=== PATIENT | female | born 1970 | race Caucasian/White ===

== ENCOUNTER 2017-09-20 06:27 | Inpatient (IN) ==
[2017-09-20] MEDS ORDERED: ENOXAPARIN 100 MG/ML SYRINGE SUBCUT STA (07:02)
[2017-09-20] MEDS ORDERED: MORPHINE 2 MG/1 ML SYRINGE IV PRN (07:02)
[2017-09-20] MEDS ORDERED: NITROGLYCERIN SL 0.4 MG TABLET SL PRN (07:02)
[2017-09-20] MEDS ORDERED: ASPIRIN 325 MG TABLET PO STA (07:02)
[2017-09-20] MEDS ORDERED: ONDANSETRON 4 MG/2 ML VIAL IV PRN (07:02)
[2017-09-20] MEDS ORDERED: NITROGLYCERIN 2% OINT 1 INCH/GM PACK TOP STA (07:02)
[2017-09-20 07:54] LABS: INR 0.9; PT Patient Result 9.7 SECS; Partial Thromboplastin Time < 21.0 SECS (0-40)
[2017-09-20] MEDS ORDERED: ENOXAPARIN 120 MG/0.8 ML SYRINGE SUBCUT ONE (08:04)
[2017-09-20] MEDS ORDERED: NITROGLYCERIN 2% OINT 1 INCH/GM PACK TOP ONE (08:05)
[2017-09-20] MEDS ORDERED: ASPIRIN 325 MG TABLET ONE (08:05)
[2017-09-20 08:17] LABS: Basophils # 0.1 10*3/uL (0.0-0.2); Basophils % 0.8 % (0.0-0.8); Eosinophils # 0.2 10*3/uL (0.0-0.87); Eosinophils % 2.5 % (0.00-10.9); Hematocrit 39.5 VOL% (35.7-47.0); Immature Granulocytes % 0.3 %; Immature Granulocytes Absolute 0.02 #; Mean Corpuscular HGB Conc 32.9 GM/DL (32-36); Mean Corpuscular Hemoglobin 30 PG (27-34); Mean Corpuscular Volume 90.4 FL (87-102); Mean Platelet Volume 10.7 FL (9.6-12.0); Monocytes # 0.5 10*3/uL (0.11-0.8); Monocytes % 7.4 % (1.7-12.7); Neutrophils # 3.5 10*3/uL (1.4-7.4); Platelet Count 251 T/CUMM (130-400); Red Blood Count 4.37 MC/CUMM (3.8-5.5); Red Cell Distribution Width 14.5 % (9.3-17.3); White Blood Count 6.1 T/CUMM (4-12)
[2017-09-20 08:22] LABS: Alanine Aminotransferase 65 U/L (13-56); Albumin 3.3 G/DL (3.4-5.0); Alkaline Phosphatase 134 U/L (45-117); Aspartate Amino Transferase 67 U/L (0-37); Bilirubin,Total < 0.39 MG/DL (0.2-1.0); Blood Urea Nitrogen 14 MG/DL (7-18); Calcium 8.4 MG/DL (8.5-10.1); Glucose 112 MG/DL (74-106); Osmolality,Calculated 278.5 MOS/KG (273-304); Potassium 4.2 MMOL/L (3.5-5.1); Sodium 139 MMOL/L (136-145); Total Protein 7.4 G/DL (6.4-8.3)
[2017-09-20] MEDS ORDERED: MAGNESIUM SULF RIDER 2 GM in PREMIX 1 EACH IV PRN ×2 (09:07→09:11)
[2017-09-20] MEDS ORDERED: ZALEPLON 5 MG CAPSULE PO PRN (09:07)
[2017-09-20] MEDS ORDERED: POTASSIUM CHLORIDE 20 MEQ TABLET PO PRN (09:07)
[2017-09-20] MEDS ORDERED: BISACODYL 5 MG TABLET PO PRN (09:07)
[2017-09-20] MEDS ORDERED: ALUM/MAG/SIMETH/LIDO VISC 1:1 30 ML BOTTLE PO PRN (09:07)
[2017-09-20] MEDS ORDERED: ACETAMINOPHEN 325 MG TABLET PO PRN (09:07)
[2017-09-20] MEDS ORDERED: MAGNESIUM SULF RIDER 4 GM in PREMIX 1 EACH IV PRN (09:07)
[2017-09-20] MEDS ORDERED: POTASSIUM CHLORIDE RIDER 10 MEQ in PREMIX 1 EACH IV PRN (09:11)
[2017-09-20] MEDS ORDERED: diphenhydrAMINE CAP 25 MG CAPSULE PO ONE (09:11)
[2017-09-20] MEDS ORDERED: DIAZEPAM 5 MG TABLET PO ONE (09:11)
[2017-09-20] MEDS ORDERED: METOPROLOL TARTRATE 5 MG/5 ML VIAL IV STA (09:14)
[2017-09-20] MEDS ORDERED: ROSUVASTATIN 20 MG TABLET PO ONE (09:14)
[2017-09-20] MEDS ORDERED: ATORVASTATIN 40 MG TABLET ONE (09:16)
[2017-09-20] MEDS ORDERED: ATORVASTATIN 40 MG TABLET PO STA (09:16)
[2017-09-20] MEDS ORDERED: LIDOCAINE 1% 20 ML VIAL ONE (11:31)
[2017-09-20] MEDS ORDERED: VERAPAMIL 5 MG/2 ML VIAL ONE (11:31)
[2017-09-20] MEDS ORDERED: NITROGLYCERIN DRIP 50 MG/250 ML BOTTLE IV ONE (11:31)
[2017-09-20] MEDS ORDERED: fentaNYL 100 MCG/2 ML VIAL ONE (12:07)
[2017-09-20] MEDS ORDERED: MIDAZOLAM 2 MG/2 ML VIAL ONE ×3 (12:07→13:33)
[2017-09-20] MEDS ORDERED: diphenhydrAMINE 50 MG/1 ML VIAL ONE (12:33)
[2017-09-20] MEDS ORDERED: TIROFIBAN 5,000 MCG/100 ML PREMIX IV ONE (13:20)
[2017-09-20] MEDS ORDERED: HYDROmorphone 2 MG/1 ML VIAL ONE (14:01)
[2017-09-20] MEDS ORDERED: TICAGRELOR 90 MG TABLET ONE (14:27)
[2017-09-20] MEDS: SODIUM CHLORIDE 0.45% 1,000 ML IV SCH (17:45)
[2017-09-20] MEDS: CARVEDILOL 6.25 MG TABLET PO SCH (20:57)
[2017-09-20] MEDS: TICAGRELOR 90 MG TABLET PO SCH (20:57)
[2017-09-20] MEDS ORDERED: ROSUVASTATIN 20 MG TABLET PO SCH (21:00)
[2017-09-21] MEDS: SODIUM CHLORIDE 0.45% 1,000 ML IV SCH ×3 (01:58→16:57)
[2017-09-21] MEDS: LEVOTHYROXINE 200 MCG TABLET PO SCH (05:45)
[2017-09-21] MEDS: LEVOTHYROXINE 25 MCG TABLET PO SCH (05:45)
[2017-09-21 09:31] LABS: Calcium 8.7 MG/DL (8.5-10.1); Magnesium 2.3 MG/DL (1.8-2.4); Osmolality,Calculated 271.7 MOS/KG (273-304); Potassium 4.2 MMOL/L (3.5-5.1); Risk Ratio 5.08; VLDL CHOLESTEROL 22.4 MG/DL
[2017-09-21] MEDS: PANTOPRAZOLE 40 MG TABLET PO SCH (10:00)
[2017-09-21] MEDS: CARVEDILOL 6.25 MG TABLET PO SCH ×2 (10:00→23:28)
[2017-09-21] MEDS: ASPIRIN EC 81 MG TABLET PO SCH (10:00)
[2017-09-21] MEDS: TICAGRELOR 90 MG TABLET PO SCH ×2 (10:00→23:28)
[2017-09-21 10:08] LABS: CKMB % 4.3 %
[2017-09-21 10:12] LABS: Troponin I Only 53.6 NG/ML (0.00-0.045)
[2017-09-21 13:59] LABS: Basophils % 0.4 % (0.0-0.8); Eosinophils # 0.1 10*3/uL (0.0-0.87); Eosinophils % 1.3 % (0.00-10.9); Hemoglobin 11.7 GM/DL (12.0-16.0); Immature Granulocytes % 0.2 %; Immature Granulocytes Absolute 0.02 #; Lymphocytes # 2.4 10*3/uL (1.4-4.0); Lymphocytes % 24.4 % (21.3-54.2); Mean Corpuscular HGB Conc 33.4 GM/DL (32-36); Mean Corpuscular Hemoglobin 30 PG (27-34); Mean Corpuscular Volume 88.6 FL (87-102); Mean Platelet Volume 10.4 FL (9.6-12.0); Monocytes # 0.9 10*3/uL (0.11-0.8); Monocytes % 8.6 % (1.7-12.7); Neutrophils # 6.5 10*3/uL (1.4-7.4); Neutrophils % 65.1 % (38.7-73.9); Platelet Count 249 T/CUMM (130-400); Red Blood Count 3.95 MC/CUMM (3.8-5.5); Red Cell Distribution Width 14.6 % (9.3-17.3)
[2017-09-21] MEDS: ROSUVASTATIN 20 MG TABLET PO SCH (23:28)
[2017-09-22 04:49] LABS: Basophils % 0.3 % (0.0-0.8); Eosinophils # 0.2 10*3/uL (0.0-0.87); Eosinophils % 1.8 % (0.00-10.9); Hematocrit 37.3 VOL% (35.7-47.0); Hemoglobin 12.6 GM/DL (12.0-16.0); Immature Granulocytes % 0.2 %; Immature Granulocytes Absolute 0.02 #; Mean Corpuscular HGB Conc 33.8 GM/DL (32-36); Mean Corpuscular Hemoglobin 29 PG (27-34); Mean Corpuscular Volume 86.7 FL (87-102); Mean Platelet Volume 10.8 FL (9.6-12.0); Monocytes # 0.9 10*3/uL (0.11-0.8); Monocytes % 9.9 % (1.7-12.7); Neutrophils # 4.6 10*3/uL (1.4-7.4); Neutrophils % 52.8 % (38.7-73.9); Platelet Count 261 T/CUMM (130-400); Red Cell Distribution Width 14.9 % (9.3-17.3); White Blood Count 8.7 T/CUMM (4-12)
[2017-09-22 05:24] LABS: Calcium 8.2 MG/DL (8.5-10.1); Magnesium 2.3 MG/DL (1.8-2.4); Osmolality,Calculated 279.3 MOS/KG (273-304); Potassium 3.5 MMOL/L (3.5-5.1)
[2017-09-22] MEDS: SODIUM CHLORIDE 0.45% 1,000 ML IV SCH (06:38)
[2017-09-22] MEDS: LEVOTHYROXINE 25 MCG TABLET PO SCH (06:39)
[2017-09-22] MEDS: LEVOTHYROXINE 200 MCG TABLET PO SCH (06:39)
[2017-09-22] MEDS: CARVEDILOL 6.25 MG TABLET PO SCH ×2 (08:50→20:38)
[2017-09-22] MEDS: TICAGRELOR 90 MG TABLET PO SCH ×2 (08:50→20:38)
[2017-09-22] MEDS: ASPIRIN EC 81 MG TABLET PO SCH (08:50)
[2017-09-22] MEDS: PANTOPRAZOLE 40 MG TABLET PO SCH (08:50)
[2017-09-22] MEDS: ROSUVASTATIN 20 MG TABLET PO SCH (20:38)
[2017-09-23 04:57] LABS: CKMB % 1.1 %; Potassium 3.2 MMOL/L (3.5-5.1)
[2017-09-23 04:59] LABS: Troponin I Only 19.5 NG/ML (0.00-0.045)
[2017-09-23] MEDS: LEVOTHYROXINE 25 MCG TABLET PO SCH (06:06)
[2017-09-23] MEDS: LEVOTHYROXINE 200 MCG TABLET PO SCH (06:06)
[2017-09-23 08:27] VITALS: BP 123/77
[2017-09-23] MEDS: PANTOPRAZOLE 40 MG TABLET PO SCH (08:47)
[2017-09-23] MEDS: ASPIRIN EC 81 MG TABLET PO SCH (08:47)
[2017-09-23] MEDS: CARVEDILOL 6.25 MG TABLET PO SCH (08:47)
[2017-09-23] MEDS: TICAGRELOR 90 MG TABLET PO SCH (08:47)
[2017-09-23] MEDS: POTASSIUM CHLORIDE 20 MEQ TABLET PO PRN ×2 (08:48→09:42)
== END 2017-09-23 13:50 | disposition home or self-care (01) | DRG 247 ==
LOC: N.EDINP 06:27 → N.ED 06:27 → N.EDINP 11:43 → N.TELES 15:04
PROVIDERS: ADMIT Internal Medicine Cardiovascular Disease; ATTEND Internal Medicine Cardiovascular Disease
PROC: CLCCHCL (ICD-10-PCS; 2017-09-20 13:45)